=== PATIENT | male | born 2000 | race Caucasian/White ===

== ENCOUNTER 2020-01-25 05:59 | Emergency (ER) | payer SELFPAY ==
[~2020-01-25] VITALS: Ht 177.8 cm; Wt 72.7 kg
[2020-01-25] MEDS ORDERED: ziprasidone 20mg capsule PO STA (06:08)
--- NOTE | 2020-01-25 07:00 | NUR ---
Pt sitting in room at this time eating food. Pt is in direct line of sight of nursing staff.
[2020-01-25 07:01] LABS: BASOPHILS # (AUTO) 0.1 X10'3 (0-0.2); BASOPHILS % (AUTO) 0.7 % (0-1); EOSINOPHILS # (AUTO) 0.5 X10'3 (0-0.9); EOSINOPHILS % (AUTO) 5.7 % (0-6); HEMATOCRIT 43.9 % (42.0-52.0); LYMPHOCYTES # (AUTO) 2.5 X10'3 (1.1-4.8); LYMPHOCYTES % (AUTO) 28.7 % (21-51); MEAN CORPUSCULAR HEMOGLOBIN 28.8 PG (27.0-31.0); MEAN CORPUSCULAR HGB CONC 34.3 g/dL (33.0-36.5); MONOCYTES # (AUTO) 0.8 X10'3 (0-0.9); MONOCYTES % (AUTO) 9.3 % (2-12); NEUTROPHILS # (AUTO) 4.7 X10'3 (1.8-7.7); NEUTROPHILS % (AUTO) 55.6 % (42-75); PLATELET COUNT 271 X10'3 (140-440); RED BLOOD COUNT 5.22 X10'6 (4.70-6.10); RED CELL DISTRIBUTION WIDTH 13.3 % (11.5-14.5); WHITE BLOOD COUNT 8.5 X10'3 (4.5-11.0)
--- NOTE | 2020-01-25 07:10 | NUR ---
Pts belongings locked in ambulance bay lockers. Belongings include: shorts, shirt, socks, shoes, and boxers
[2020-01-25 07:14] LABS: ALANINE AMINOTRANSFERASE 29 U/L (12-78); ALBUMIN 3.8 G/DL (3.4-5.0); ALKALINE PHOSPHATASE 90 IU/L (20-180); ANION GAP 9 (8-16); ASPARTATE AMINO TRANSFERASE 19 U/L (10-37); BILIRUBIN,TOTAL 0.3 MG/DL (0.1-1.0); BLOOD UREA NITROGEN 14 MG/DL (7-18); BUN/CREATININE RATIO 16.1 (5.4-32.0); CALCIUM 8.4 MG/DL (8.5-10.1); CHLORIDE 106 MMOL/L (99-107); CREATININE 0.87 MG/DL (0.60-1.10); GLUCOSE 111 MG/DL (70-104); POTASSIUM 3.6 MMOL/L (3.5-5.1); SODIUM 142 MMOL/L (135-145); TOTAL CARBON DIOXIDE 26.9 MMOL/L (24-32); TOTAL PROTEIN 7.5 G/DL (6.4-8.2); eGFR > 90 ML/MIN
[2020-01-25 07:25] LABS: ETHANOL < 0.010 GM/DL (0.0-0.010)
[2020-01-25 07:40] LABS: URINE AMPHETAMINE SCREEN POSITIVE (Neg); URINE BARBITUATE SCREEN NEGATIVE (Neg); URINE BENZODIAZEPINES SCREEN NEGATIVE (Neg); URINE CANNABINOID SCREEN NEGATIVE (Neg); URINE COCAINE SCREEN NEGATIVE (Neg); URINE METHADONE SCREEN NEGATIVE (Neg); URINE OPIATE SCREEN NEGATIVE (Neg); URINE PHENCYCLIDINE SCREEN NEGATIVE (Neg)
[2020-01-25] MEDS: ziprasidone 20mg capsule PO SCH ×2 (08:00→20:00)
--- NOTE | 2020-01-25 08:55 | NUR ---
Packet faxed to [facility] office
--- NOTE | 2020-01-25 09:38 | NUR ---
pt was walked over from room 15 in main ER to room 21 in overflow, by security and two techs, without incident. He has been given a green blanket for unknown reason, will not give his name or
--- NOTE | 2020-01-25 10:01 | NUR ---
ANUJA Singh, at bedside, to keith pt, pt is somulent, states name is Nadine and has no last name. States he is unsure of how he got to [place] and doesn't know what he is looking for as far as help, states he lives "nowhere"
--- NOTE | 2020-01-25 10:08 | NUR ---
[facility] will try to re eval pt later, too sleepy to give any information
--- NOTE | 2020-01-25 11:01 | NUR ---
pt is supine in bed, snoring, no s/s of agitation observed, will continue to monitor
--- NOTE | 2020-01-25 11:53 | NUR ---
pt is supine in bed snoring, no s/s of agitation observed
--- NOTE | 2020-01-25 13:00 | NUR ---
pt is sleeping, quietly snoring, no agitation observed
--- NOTE | 2020-01-25 14:00 | NUR ---
still sleeping, no agitation observed
--- NOTE | 2020-01-25 14:21 | NUR ---
Francisco from [facility] is back to try to eval pt, he is still very tired, he did just drink an entire glass of lemonade, is still having trouble staying in a conversation, he is still sleepy
--- NOTE | 2020-01-25 15:07 | NUR ---
pt is supine in bed, snoring, no s/s of agitation
--- NOTE | 2020-01-25 15:54 | NUR ---
pt is asleep, quietly snoring, no s/s of agitation observed
--- NOTE | 2020-01-25 16:53 | NUR ---
pt is awake and eating his breakfast, was asked if he wants his lunch heated up, states yes he does, was given his lunch
--- NOTE | 2020-01-25 18:30 | NUR ---
Pt sleeping in bed. He remains somnolent; did not awaken to eat his dinner though this typewriter mechanic attempted to rouse pt. Pt states his name is "Aure" (phonetic) and would not give this typewriter mechanic a last name. It took multiple attempts to have the pt answer "What is your name?" as pt continues to fall back asleep as soon as he is roused. Unable to complete physical assessment, general assessment and medication reconciliation due to the pt's current condition. Admitting also attempted to retrieve information to no avail. He is thought to be sleeping and eating only due to recent use of meth. Pt does not appear distressed while sleeping, and intermittently will change positions. Dinner tray saved should patient wake on his own volition at a later time. Will continue to monitor.
--- NOTE | 2020-01-25 20:56 | NUR ---
Pt sleeping, no distress noted. Will continue to monitor.
--- NOTE | 2020-01-25 21:16 | NUR ---
Awoke, asking if he could use the restroom. Pt guided to bathroom; pt immediately returned to bed and fell asleep.
--- NOTE | 2020-01-26 00:31 | NUR ---
Pt continues to sleep deeply, changing positions intermittently. No distress noted, respirations even. Will continue to monitor.
--- NOTE | 2020-01-26 02:15 | NUR ---
Awoke requesting food through non-verbal hand gestures towards his mouth. Dinner tray and turkey sandwich given.
--- NOTE | 2020-01-26 05:00 | NUR ---
Pt sleeping, changing positions. Stared at nurse blankly, RN approached to see if patient needed anything; pt eventually nodded yes for blanket. [place] given an pt returned to sleep.
[2020-01-26 06:07] VITALS: BP 97/55
--- NOTE | 2020-01-26 07:27 | NUR ---
Pt resting with eyes closed. Pt noted to reposition self and with unlabored respirations.
--- NOTE | 2020-01-26 07:34 | NUR ---
[facility] office called and confirmed precipitator supervisor to come and evaluate pt as pt too somnolent yesterday. Boilermaker Fitter to come in around 8 am
--- NOTE | 2020-01-26 08:01 | NUR ---
Holding pts morning dose of Geodon as pt sleepy and still to be evaluated by [facility].
--- NOTE | 2020-01-26 08:51 | NUR ---
[facility] worker Francisco at bedside assessing pt. while pt eating breakfast tray.
[2020-01-26] MEDS: ziprasidone 20mg capsule PO SCH (09:15)
--- NOTE | 2020-01-26 09:28 | NUR ---
Pt spoke with [facility] learning and development associate, ate 100% of breakfast tray, took morning Geodon dose and is now sleeping.
--- NOTE | 2020-01-26 10:36 | NUR ---
Pt reporting name that was given to him as Alexis Weinstein with 12/02/1991. [facility] worker Francisco reports he spoke with [facility] client manager whom is familiar with pt.
--- NOTE | 2020-01-26 10:45 | NUR ---
Pt to be DC'd per [facility] evaluation as pt does not meet criteria for hold. Theology Professor Francisco speaking with IGGY RIVERA and requesting DC paperwork.
--- NOTE | 2020-01-26 11:55 | NUR ---
Belongings returned to pt, discharge papers with list of community resorces and bus pass supplied to pt as well. Pt walked out with security per hospital policy.
== END 2020-01-26 12:03 | disposition home or self-care (01) ==
LOC: ER 06:01 → EDBD 06:01 → ER 01-26 12:03
DX: S50.312A Abrasion of left elbow, initial encounter (principal); F29 Unspecified psychosis not due to a substance or known physiological condition; R41.82 Altered mental status, unspecified; F79 Unspecified intellectual disabilities; X58.XXXA Exposure to other specified factors, initial encounter; Y93.89 Activity, other specified; Y92.89 Other specified places as the place of occurrence of the external cause; Y99.8 Other external cause status
CPT/HCPCS: 36415; 80053; 80305; 80320; 84443; 85025; 99283